=== PATIENT | female | born 1960 | race Asian ===

== ENCOUNTER 2021-06-24 08:53 | Outpatient (CLI) | payer OTHER | END 2021-06-24 08:54 | disposition home or self-care (01) | LOC: CSHMAMMO 08:53 | PROVIDERS: ATTEND Family Medicine | DX: Z12.31 Encounter for screening mammogram for malignant neoplasm of breast (principal); M85.89 Other specified disorders of bone density and structure, multiple sites | CPT/HCPCS: 77063; 77067; 77080 ==

== ENCOUNTER 2022-08-03 09:56 | Outpatient (CLI) | payer OTHER ==
[2022-08-03] MEDS ORDERED: Iopamidol 300 61% 100 ML VIAL FS ONE (14:01)
== END 2022-08-03 09:57 | disposition home or self-care (01) ==
LOC: CSHCT 09:56
PROVIDERS: ATTEND Urology
DX: R31.29 Other microscopic hematuria (principal); N20.0 Calculus of kidney
CPT/HCPCS: 74178; 82565; Q9967

== ENCOUNTER 2023-08-19 12:29 | Outpatient (CLI) | payer OTHER | END 2023-08-19 12:30 | disposition home or self-care (01) | LOC: CSHMAMMO 12:29 | PROVIDERS: ATTEND Family Medicine | DX: Z12.31 Encounter for screening mammogram for malignant neoplasm of breast (principal); M85.89 Other specified disorders of bone density and structure, multiple sites | CPT/HCPCS: 77063; 77067; 77080 ==

== ENCOUNTER 2024-08-22 09:05 | Outpatient (CLI) | payer OTHER | END 2024-08-22 09:06 | disposition home or self-care (01) | LOC: CSHMAMMO 09:05 | PROVIDERS: ATTEND Family Medicine | DX: Z12.31 Encounter for screening mammogram for malignant neoplasm of breast (principal) | CPT/HCPCS: 77063; 77067 ==

== ENCOUNTER 2025-08-23 10:18 | Outpatient (CLI) | payer MEDICARE | END 2025-08-23 10:19 | disposition home or self-care (01) | LOC: CSHMAMMO 10:18 | PROVIDERS: ATTEND Family Medicine | DX: Z12.31 Encounter for screening mammogram for malignant neoplasm of breast (principal) | CPT/HCPCS: 77063; 77067 ==